=== PATIENT | female | born 1955 | race Caucasian/White ===

== ENCOUNTER 2018-09-08 11:25 | Day surgery (SDC) | payer MEDICARE, BC ==
[~2018-09-08 11:25] MED LIST: PROPOFOL 500 MG/50 ML EMU IV ONE
[2018-09-08 13:06] VITALS: PULSE 46
[2018-09-08 13:36] VITALS: BP 142/60; RESP 18; TEMP 98.1; O2SAT 97
== END 2018-09-08 13:47 | disposition home or self-care (01) | DRG 951 ==
LOC: SURG 11:25
PROVIDERS: ATTEND Surgery
DX: Z12.11 Encounter for screening for malignant neoplasm of colon (principal); Z86.010 Personal history of colon polyps
CPT/HCPCS: J2704